=== PATIENT | male | born 1985 | race Caucasian/White ===

== ENCOUNTER 2019-11-28 11:06 | Day surgery (SDC) | payer MEDICARE, MEDICAID ==
[~2019-11-28] VITALS: Ht 162.6 cm; Wt 83.3 kg
[2019-11-28] VITALS (14 sets, daily range): BP systolic 106–128; BP diastolic 58–76
[~2019-11-28 11:06] MED LIST: NO HOME MEDS; cefazolin/dext.iso 2gm/50ml 50 ML IV ONE; diazepam 5mg tablet PO ONE; famotidine 10mg tablet PO ONE; ringers solution, lacted 1,000 ML IV SCH; vancomycin 1,500 MG in NS 300ml IV soln IV ONE
[2019-11-28] MEDS ORDERED: LIDOcaine/PRILOcaine 5gm cream TP ONE (11:35)
[2019-11-28] MEDS ORDERED: ketamine 50 mg/ml 10ml vial ONE (11:51)
[2019-11-28] MEDS ORDERED: sevoflurane 250ml liquid IH ONE (12:02)
[2019-11-28] MEDS ORDERED: MIDAZOLAM HCL 10 MG/5 ML UD cup PO ONE (12:05)
[2019-11-28] MEDS ORDERED: famotidine/PF 10 mg/ml inj IV ONE ×2 (12:10→12:11)
[2019-11-28] MEDS ORDERED: LIDOcaine 1% W/epiNEPHrine 1:100,000 20ml vial ONE (12:18)
[2019-11-28] MEDS ORDERED: fentaNYL/PF 50MCG/1 ML 2ML syringe ONE (12:55)
[2019-11-28] MEDS ORDERED: ePHEDrine 50MG/ML INJ. ONE (13:01)
[2019-11-28] MEDS ORDERED: dexamethasone sod phosphate 4mg/ml inj. ONE (13:01)
[2019-11-28] MEDS ORDERED: ondansetron/PF 4mg/2ml inj ONE (13:01)
[2019-11-28 13:13] LABS: BASOPHILS # (AUTO) 0.1 X10'3 (0-0.2); BASOPHILS % (AUTO) 1.4 % (0-1); EOSINOPHILS % (AUTO) 0.6 % (0-6); LYMPHOCYTES # (AUTO) 0.6 X10'3 (1.1-4.8); LYMPHOCYTES % (AUTO) 15.5 % (21-51); MEAN CORPUSCULAR HEMOGLOBIN 32.4 PG (27.0-31.0); MEAN CORPUSCULAR HGB CONC 33.4 g/dL (33.0-36.5); MEAN CORPUSCULAR VOLUME 97.2 FL (78-98); MONOCYTES # (AUTO) 0.3 X10'3 (0-0.9); MONOCYTES % (AUTO) 8.6 % (2-12); NEUTROPHILS # (AUTO) 2.9 X10'3 (1.8-7.7); NEUTROPHILS % (AUTO) 73.9 % (42-75); PRE OP HEMATOCRIT 51.1 % (42.0-52.0); PRE OP PLATELET COUNT 332 X10'3 (140-440); RED BLOOD COUNT 5.25 X10'6 (4.70-6.10); RED CELL DISTRIBUTION WIDTH 14.9 % (11.5-14.5)
[2019-11-28 13:25] LABS: PRE OP PROTIME 10.3 SECONDS (9.0-12.0)
[2019-11-28 13:29] LABS: ALBUMIN 3.6 G/DL (3.4-5.0); ALKALINE PHOSPHATASE 67 IU/L (46-116); BLOOD UREA NITROGEN 10 MG/DL (7-18); BUN/CREATININE RATIO 9.3 (5.4-32.0); CALCIUM 7.8 MG/DL (8.5-10.1); CHLORIDE 107 MMOL/L (99-107); CREATININE 1.07 MG/DL (0.60-1.10); MAGNESIUM 1.9 MG/DL (1.5-2.4); PRE OP ALT 26 U/L (30-65); PRE OP ANION GAP 6 (8-16); PRE OP AST 16 U/L (10-37); PRE OP BILIRUB, TOTAL 0.8 MG/DL (0.0-1.0); PRE OP GLUCOSE 113 MG/DL (70-104); PRE OP POTASSIUM 3.7 MMOL/L (3.4-5.1); PRE OP SODIUM 142 MMOL/L (135-145); TOTAL CARBON DIOXIDE 29.4 MMOL/L (24-32); TOTAL PROTEIN 7.1 G/DL (6.4-8.2); eGFR 80 ML/MIN
--- NOTE | 2019-11-28 13:30 | NUR ---
Received from OR via BED, accompanied by Anesthesiologist DR MONTES-- and report given by Anesthesiolgist. PATIENT A&OX4, DENIES PAIN, V/S WNL, NEUROVASCULAR CHECKS INTACT, 20G PIV LUE, SCD ON, DRESSING TO LEFT CHEST CDI
[2019-11-28] MEDS ORDERED: labetalol 20mg/4ml (5mg/ml) syringe IV PRN (13:35)
[2019-11-28] MEDS ORDERED: proCHLORperazine 10 MG/2 ml inj IV PRN (13:35)
[2019-11-28] MEDS ORDERED: morphine 2 MG/ML inj. syringe IV PRN (13:35)
[2019-11-28] MEDS ORDERED: ondansetron/PF 4mg/2ml inj IV PRN (13:35)
[2019-11-28] MEDS ORDERED: meperidine/PF 25mg/ml syringe IV PRN ×3 (13:35)
[2019-11-28] MEDS ORDERED: ringers solution, lacted 1,000 ML IV SCH (13:35)
[2019-11-28] MEDS ORDERED: hydrALAZINE 20mg/ml inj. IV PRN (13:35)
[2019-11-28] MEDS ORDERED: morphine 4 MG/ML inj SYRINge IV PRN (13:35)
[2019-11-28] MEDS ORDERED: acetaminophen 1,000mg/100ml IV 100 ML IV PRN (13:35)
--- NOTE | 2019-11-28 15:20 | NUR ---
PATIENT A&OX4, DENIES PAIN, V/S WNL, NEUROVASCULAR CHECKS INTACT, 20G PIV LUE d/c, SCD Off, DRESSING TO LEFT CHEST CDI with sling on. pacer inspected by [facility] and shown to be functioning correctly. i have reviewed d/c instructions with patient and his mom and they have verbalized understanding. patient d/c home with all belongings and his dad gave transport home.
== END 2019-11-28 15:20 | disposition home or self-care (01) ==
LOC: PRE-OP 11:06 → PAS 15:20
PROVIDERS: ATTEND Internal Medicine Cardiovascular Disease
DX: Z45.010 Encounter for checking and testing of cardiac pacemaker pulse generator [battery] (principal); I49.5 Sick sinus syndrome; Q90.9 Down syndrome, unspecified; G47.33 Obstructive sleep apnea (adult) (pediatric); E66.8 Other obesity; Z68.31 Body mass index [BMI] 31.0-31.9, adult; Z79.899 Other long term (current) drug therapy
CPT/HCPCS: 33227; 36415; 80053; 83735; 85025; 85610; 93005; C1786; J1100; J2405; J3010; J3370; J3490; J7040; A4618; A6258; J7120